=== PATIENT | male | born 1955 | race Caucasian/White ===

== ENCOUNTER 2017-11-15 12:20 | Emergency (ER) | payer OTHER ==
[~2017-11-15] VITALS: Ht 185.4 cm; Wt 144.2 kg
[~2017-11-15 12:20] MED LIST: ASPIRIN CHEW81 MG PO; ATORVASTATIN CA80 MG PO; CIPRO500 MG PO; CLEOCIN HCL150 MG PO; COLACE100 M1 PO; FENOFIBRATE145 MG PO; FLAGYL500 MG PO; FUROSEMIDE40 MG PO; HUMULIN R100 UNIT/2 PO; Insulin Detemir SQ; JANUVIA100 MG PO; LEVEMIR100 UNIT/1 SC; METOPROLOL TART50 MG PO; MINOCYCLINE HC100 MG PEG; MIRALAX17 GM PO; NORCO 10-325 T1 EACH PO; NORCO 5-325 TA1 EACH PO; PENCILLIN V PO250 MG PO; QUINAPRIL HCL20 MG PO; QUINAPRIL PO; QUINAPRIL-HCTZ1 EAC1 PO; QUINAPRIL-HCTZ1 EACH PO; TORSEMIDE10 MG PO; Z.0.CRESTOR20 MG PO; Z.0.FLAGYL500 MG PO; Z.0.HUMULIN R500 UNI SQ; Z.0.LANTUS100 UNIT/1 SQ; Z.0.LASIX40 MG PO; Z.0.LEVAQUIN500 MG PO; Z.0.TRILIPIX135 MG PO; Z.0.VICODIN HP TAB1 PO; Z.1.METFORMIN HCL100 PO; [UNRECOGNIZED DRUG - OTHER] SQ
[2017-11-15 13:40] LABS: BASOPHILS # (AUTO) 0.1 (0.0-0.1); BASOPHILS % 0.9 % (0.0-1.0); EOSINOPHILS # (AUTO) 0.3 (0.0-0.4); EOSINOPHILS % 2.8 % (0.0-6.0); HEMATOCRIT 36.1 % (38.2-49.6); HEMOGLOBIN 11.9 g/dL (14.0-18.0); LYMPHOCYTES # (AUTO) 1.7 (1.0-3.2); LYMPHOCYTES % 16.1 % (18.0-39.1); MONOCYTES # (AUTO) 0.9 (0.2-0.8); MONOCYTES % 8.7 % (4.4-11.3); NEUTROPHILS # (AUTO) 7.5 (2.1-6.9); PLATELET COUNT 137 x10e3/uL (140-360); RED BLOOD COUNT 3.84 x10e6/uL (4.3-5.7); RED CELL DISTRIBUTION WIDTH 14.2 % (11.7-14.4)
[2017-11-15] MEDS ORDERED: DIATRIZOATE MEGL/DIATRIZOA SOD 30 ML BTL PO ONE (13:42)
[2017-11-15 14:03] LABS: ALBUMIN 2.6 g/dL (3.5-5.0); ALBUMIN/GLOBULIN RATIO 0.5 (0.8-2.0); ANION GAP 13.1 mmol/L (8-16); CALCIUM 8.7 mg/dL (8.4-10.2); CREATININE, SERUM 2.21 mg/dL (0.72-1.25); POTASSIUM 4.1 mmol/L (3.5-5.1)
[2017-11-15 14:58] LABS: INR 1.06; PROTHROMBIN TIME 14.3 seconds (11.9-14.5)
--- NOTE | 2017-11-15 15:56 | Diagnostic Imaging Report ---
PROCEDURE: CT ABDOMEN AND PELVIS WITHOUT CONTRAST TECHNIQUE: The abdomen and pelvis were scanned utilizing a multidetector helical scanner from the diaphragm to the lesser trochanter after the oral administration of Gastroview. No IV contrast was administered due to low GFR Coronal and sagittal multiplanar reformations were obtained. COMPARISON: Patients [facility], CT, CT ABDOMEN/PELVIS WO, 02/26/2012, 14:28. Patients [facility], CT, CT ABDOMEN/PELVIS WO, 04/09/2013, 15:55. [facility], CT, CT ABDOMEN/PELVIS WO, 10/22/2017, 2:22. INDICATIONS: LIVER CANCER, RIGHT UPPER QUADRANT PAIN FINDINGS: ABSENCE OF INTRAVENOUS CONTRAST DECREASES SENSITIVITY FOR DETECTION OF FOCAL LESIONS AND VASCULAR PATHOLOGY. LOWER THORAX: Atherosclerotic calcification of the coronary arteries. Stable 1.3 cm subpleural nodule in the lateral right lower lobe (series 2, image 14). HEPATOBILIARY: Nodular hepatic contour. 2.9 x 2.8 cm, hypodense lesion in hepatic segment VII/, which is stable. No other focal lesions. No biliary ductal dilation. Cholecystectomy clips. SPLEEN: Mild splenomegaly, measuring 15.3 cm in AP diameter. PANCREAS: No focal masses or ductal dilatation. Stable fatty replacement. ADRENALS: No adrenal nodules. KIDNEYS/URETERS: No hydronephrosis, stones, or solid mass lesions. PELVIC ORGANS/BLADDER: Bladder is unremarkable. No focal lesions. PERITONEUM / RETROPERITONEUM: Moderate intra-abdominal and large pelvic ascites, which is unchanged since the prior exam. LYMPH NODES: No lymphadenopathy. VESSELS: Atherosclerotic calcification of the abdominal aorta and aortic branches. The portal vein is dilated, measuring 2.0 cm GI TRACT: No bowel dilation or evidence of obstruction. BONES AND SOFT TISSUES: No acute bony abnormalities. No aggressive lytic or sclerotic lesions. IMPRESSION: 1. cirrhotic liver, with evidence of portal hypertension, manifested by dilated portal vein,, splenomegaly and ascites. Stable 2.9 cm mass in the right hepatic lobe, which is suspicious for hepatocellular carcinoma. 2. No bowel dilation or evidence of obstruction. 3. No renal, ureteral, or bladder calculi. No hydronephrosis or obstruction. 4. Stable 1.3 cm subpleural nodule in the lateral right lower lobe since 2011, which is presumed benign. Dl Yancey M.D. Dictated by: Dl Yancey M.D. on 11/15/2017 at 16:04 Electronically approved by: Dl Yancey M.D. on 11/15/2017 at 16:04
[2017-11-15] MEDS ORDERED: ONDANSETRON HCL INJ 2 MG/ML VIAL IV STA (17:02)
[2017-11-15] MEDS ORDERED: HYDROMORPHONE 1MG/1ML INJ IV STA (17:02)
[2017-11-15] MEDS ORDERED: HYDROMORPHONE 2MG/ML INJ IV ONE (17:45)
[2017-11-15] MEDS ORDERED: ALBUMIN HUMAN 200 ML IV SCH (17:45)
[2017-11-15] MEDS ORDERED: ALBUMIN 5% 250ML IV ONE (17:45)
[2017-11-15 20:15] LABS: BODY FLUID TYPE PERITONEAL
[2017-11-15 20:16] LABS: BODY FLUID APPEARANCE SL.CLOUDY; BODY FLUID COLOR YELLOW; RBC,BODY FLUID 96 cells/uL; WBC,BODY FLUID 115 cells/uL
[2017-11-15] MEDS ORDERED: HYDROCODONE/APAP 7.5MG-325MG 1 EA TAB PO STA (20:16)
[2017-11-15 20:50] LABS: LYMPHOCYTES,BODY FLUID 26 %; MONO/MACROPHG,BODY FLUID 24 %; NEUTROPHILS,BODY FLUID 50 %
[2017-11-15 21:07] VITALS: BP 115/66
--- NOTE | 2017-11-30 15:32 | Diagnostic Imaging Report ---
PROCEDURE:US GUIDED PARACENTESIS COMPARISON:[facility], CT, CT ABDOMEN/PELVIS WO, 11/15/2017, 14:50. INDICATIONS:Ascites FINDINGS: After informed consent was obtained, focused abdominal ultrasound identified a safe entry route into the free ascitic fluid in the right lower quadrant of the abdomen. The overlying skin was prepped and draped in sterile fashion. Lidocaine 1% was used for local anesthesia. Under ultrasound guidance, a centesis needle was advanced into the ascitic fluid, the needle was removed and the catheter attached to vacuum bottle. 9900 cc of yellowish clear fluid were aspirated. The catheter was removed. There was <1cc blood loss and no complications. Samples were sent to the laboratory for analysis. CONCLUSION: Uncomplicated ultrasound-guided paracentesis with removal of 9900 cc. Dl Yancey M.D. Dictated by: Dl Yancey M.D. on 11/30/2017 at 15:40 Electronically approved by: Dl Yancey M.D. on 11/30/2017 at 15:40
== END 2017-11-15 21:28 | disposition home or self-care (01) ==
LOC: ER 12:20
DX: R10.11 Right upper quadrant pain (principal); R11.0 Nausea; K70.31 Alcoholic cirrhosis of liver with ascites; C22.8 Malignant neoplasm of liver, primary, unspecified as to type
CPT/HCPCS: 36415; 49083; 74176; 74470; 80053; 82150; 83690; 85025; 85610; 85730; 87205; 89051; 99284; C1729; J1170; J2405; P9047

== ENCOUNTER → 2017-11-23 | Outpatient (CLI) | payer OTHER ==
[~2017-11-23] MED LIST changes: +ALBUMIN HUMAN 200 ML IV ONE
--- NOTE | 2017-11-23 15:38 | Diagnostic Imaging Report ---
PROCEDURE:US GUIDED PARACENTESIS COMPARISON:None. INDICATIONS:PARACENTESIS FOR ASCITES FINDINGS: After informed consent was obtained, focused abdominal ultrasound identified a safe entry route into the free ascitic fluid in the left lower quadrant of the abdomen. The overlying skin was prepped and draped in sterile fashion. Lidocaine 1% was used for local anesthesia. Under ultrasound guidance, a 5 Romanian centesis needle was advanced into the ascitic fluid, the needle was removed and the catheter attached to vacuum bottle. Approximately 8,300 cc of yellow ascitic fluid were aspirated. The catheter was removed. There was <1cc blood loss and no complications. Patient did receive albumin during and following the procedure. CONCLUSION: Uncomplicated ultrasound-guided paracentesis with removal of 8,300 cc's of ascitic fluid. Fidel Ceron D.O. Dictated by: Fidel Ceron D.O. on 11/23/2017 at 15:45 Electronically approved by: Fidel Ceron D.O. on 11/23/2017 at 15:45
== END ==
LOC: US 12:28
PROVIDERS: ATTEND Internal Medicine
DX: R18.8 Other ascites (principal); K74.60 Unspecified cirrhosis of liver
CPT/HCPCS: 36415; 49083; 82948; C1729